=== PATIENT | male | born 1950 | race Caucasian/White ===

== ENCOUNTER → 2017-06-22 | Day surgery (SDC) | payer OTHER ==
[~2017-06-22] MED LIST: DEXAMETHASONE SOD PHOS 4 MG/ML VIAL ONE; EPINEPHrine HCL (1:1000) 1 MG/ML VIAL ONE; IBUPROFEN 200 MG TAB ONE; KETOROLAC TROMETHAMINE 30 MG/ML (IVP) VIAL ONE; MIDAZOLAM HCL 2 MG/2 ML VIAL ONE; MOXIFLOXACIN 0.5% OPHT SOLN 3 ML BTL ONE; ONDANSETRON HCL 4 MG/2 ML VIAL IV PUSH ONE; PHENYLEPHRINE HCL 10% OPTH SOLN 5 ML BTL ONE; PROPOFOL 200 MG/20 ML AMP IV ONE; SODIUM CHLORIDE 0.9% INJ 10 ML ONE; SODIUM CHLORIDE 0.9% SOLN 1000 ML BTL ONE; TETRACAINE 0.5% OPTH SOLN 15 ML BTL ONE; TOBRAMYCIN/DEXAMETHASONE OPTH OINT 3.5 GM TUBE ONE; TRIAMCINOLONE ACETONIDE 40 MG/ML VIAL ONE; ceFAZolin INJ 1,000 MG VIAL ONE; prednisoLONE ACETATE 1% OPHT SUSP 5 ML BTL ONE
--- NOTE | 2017-06-28 06:07 | TN ---
cc: ASHKAN AMBROCIO MD DATE OF SURGERY 06/22/2017 PREOPERATIVE DIAGNOSIS Severe epiretinal membrane. POSTOPERATIVE DIAGNOSIS Severe epiretinal membrane. PROCEDURE Pars plana vitrectomy, removal of internal limiting membrane/epiretinal membrane, endolaser, insertion of intravitreal Kenalog right eye. COMPLICATIONS None. BLOOD LOSS Less than [address] Gomez general. 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 The patient elected for surgical correction understanding the risks, benefits and alternatives. PROCEDURE NOTE After informed consent was obtained, the patient was brought to the operating room and general anesthesia was established. The right eye was prepped and draped in sterile fashion with Betadine in the conjunctival fornix. A core vitrectomy was carried out and vitreous traction in the peripheral retina was removed. A superior retinal tear was identified and treated with endolaser. The ERM/ILM complex was highlighted with ICG and removed with [place] ILM forceps. Scleral depressed examination revealed no untreated retinal holes, tears or detachments. Intravitreal Kenalog was instilled. The trocars were removed and sclerotomies closed. Subconjunctival injection of Ancef and dexamethasone were given. The eye was patched with Tobramycin ointment. The patient was brought to the recovery room in stable condition and will continue followup with [facility] for his postoperative care. Ashkan Ambrocio MD KW/SSB /6:59 PM /5:55 AM
== END | disposition home or self-care (01) ==
LOC: ESDC 06:05
PROVIDERS: ATTEND Ophthalmology
DX: H35.371 Puckering of macula, right eye (principal); H53.15 Visual distortions of shape and size; H33.311 Horseshoe tear of retina without detachment, right eye
CPT/HCPCS: 00145; 67113; J0171; J0690; J1100; J1885; J2250; J2405; J3010; J3301